=== PATIENT | male | born 1970 | race Two or more races ===

== ENCOUNTER → 2017-11-30 | Outpatient (CLI) | payer MEDICAID, OTHER ==
[~2017-11-30] MED LIST: ALBUMIN 25% 100 ML SOLN IV ONE; LIDOCAINE 1% 300 MG/30 ML SDV ONE
== END ==
LOC: FIMAGING 12:06
PROVIDERS: ATTEND Internal Medicine
PROC: 0W9G30Z Drainage of Peritoneal Cavity with Drainage Device, Percutaneous Approach (ICD-10-PCS; principal; 2017-11-30)
DX: R18.8 Other ascites (principal)
CPT/HCPCS: P9047

== ENCOUNTER 2017-12-01 11:28 | Emergency (ER) | payer SELFPAY ==
[2017-12-01 11:39] VITALS: RESP 18; TEMP 98.6; O2SAT 97
--- NOTE | 2017-12-01 12:52 | EDPHY ---
H & P Stated Complaint: Sent from Dr Vargas "infection in abd fluid" pt feels well Time Seen by Provider: 12/01/17 12:51 - Medical/Surgical History Hx Asthma: No Hx Chronic Respiratory Disease: No Hx Diabetes: No Hx Cardiac Disease: No Hx Renal Disease: No Hx Cirrhosis: No Hx Alcoholism: No Hx HIV/AIDS: No Hx Splenectomy or Spleen Trauma: No Other PMH: cirrosis - Social History Smoking Status: Never smoked Constitutional: Initial Vital Signs Temperature (C) 37.0 C 12/01/17 11:35 Heart Rate 105 H 12/01/17 11:35 Respiratory Rate 18 12/01/17 11:35 Blood Pressure 95/62 L 12/01/17 11:35 O2 Sat (%) 97 12/01/17 11:35 O2 Delivery Mode Room Air Allergies/Adverse Reactions: No Known Allergies Allergy (Unverified 12/01/17 11:34) Home Medications: Medication Instructions Recorded Furosemide 12/01/17 Medical Decision Making ED Course/Re-evaluation: CHIEF COMPLAINT: "I think I have a fluid infection" HISTORY OF PRESENT ILLNESS: The patient is a 47 y/o male with end-stage alcoholic cirrhosis and multiple prior paracenteses who arrives at the recommendation of his GI, Dr. Suarez, for infected peritoneal fluid. His most recent paracentesis was performed as an outpatient yesterday. He has no complaints here and denies abdominal pain, nausea, fever, chills, or any infectious symptoms. REVIEW OF SYSTEMS: A 10 point review of systems was performed and is negative with the exception of the elements mentioned in the history of present illness. PHYSICAL EXAM: HR, BP, O2 Sat, RR. Temp noted General Appearance: Alert, well hydrated, appropriate, and non-toxic appearing. Head: Atraumatic without scalp tenderness or obvious injury Eyes: Pupils equal, round, reactive to light and accommodation, EOMI, no trauma , no injection. Nose: Atraumatic, no rhinorrhea, clear. Throat: Mucus membranes moist. Neck: Supple Respiratory: No retractions, no distress, no wheezes, and no accessory muscle use. Lungs are clear to auscultation bilaterally. Cardiovascular: Regular rate and rhythm, no murmurs, rubs, or gallops. Good capillary refill all extremities. Gastrointestinal: Abdomen is soft, nontender, some distension with positive fluid wave, no masses, no rebound, no guarding, no peritoneal signs. Musculoskeletal: Normal active ROM of all extremities, atraumatic. Neurological: Alert, appropriate, and interactive. The patient has non-focal cranial nerves, motor, sensory, and cerebellar exam. Skin: No rashes, good turgor, no nodules on palpation. Past medical history: History of prior alcohol abuse; end-stage alcoholic cirrhosis with ascites Past surgical history: Multiple paracenteses - most recently 11/30/17. Family history: Noncontributory Social history: Family at bedside. Former alcoholic. GI: Dr. Vargas Prior medical records reviewed including ED visit 11/16/17 for abdominal distension and lab report from yesterday. DIFFERENTIAL DIAGNOSIS: The differential diagnosis for the patient's presentation included but was not limited to spontaneous bacterial peritonitis, cirrhosis with ascites, appendicitis, cholecystitis, hernias, testicular torsion , gastritis, and urinary tract infection. MEDICAL DECISION MAKING: This is a 47 y/o male with end-stage alcoholic cirrhosis who comes to the ED 1 day after his most recent paracentesis due to possible infected peritoneal fluid. He is completely asymptomatic and relatively well-appearing given his cirrhosis. He denies any recent infectious symptoms. Abdomen is nontender with positive fluid wave. Plan to review records and consult ID regarding lab results from yesterday. 1310: Consulted with VIJAYA Wright. He confirms the elevated WBC can indicate spontaneous bacterial peritonitis. He recommends treatment with Levaquin and outpatient follow up with Dr. Suarez on Monday. Peritoneal fluid cultures ordered. Discussed recommendation with the patient. He agrees with discharge plan. Strict return precautions discussed. Departure - Departure Disposition: Home, Routine, Self-Care Clinical Impression: Spontaneous bacterial peritonitis Alcoholic cirrhosis Qualifiers: Ascites presence: with ascites Qualified Code(s): K70.31 - Alcoholic cirrhosis of liver with ascites Condition: Good Instructions: Cirrhosis (ED), Ascites (ED) Additional Instructions: 1. Take Levaquin as prescribed. Be sure to complete the entire prescription. 2. Follow up with Dr. Suarez next week. 3. Return to the ED for abdominal pain, fever, chills, nausea, weakness, vomiting, or any other worsening of condition. Referrals: Tristan Suarez [Primary Care Provider] - As per Instructions Report Scribed for: Edwin Choi Report Scribed by: Laura Doyle Date of Report: 12/01/17 Time of Report: 12:59
[2017-12-01 13:38] VITALS: BP 101/64; PULSE 98
== END 2017-12-01 13:38 | disposition home or self-care (01) ==
DX: K70.31 Alcoholic cirrhosis of liver with ascites (principal); K65.2 Spontaneous bacterial peritonitis

== ENCOUNTER → 2017-12-14 | Outpatient (CLI) | payer MEDICAID | LOC: FIMAGING 11:47 | PROVIDERS: ATTEND Internal Medicine | PROC: 0W9F30Z Drainage of Abdominal Wall with Drainage Device, Percutaneous Approach (ICD-10-PCS; principal; 2017-12-14) | DX: R18.8 Other ascites (principal) | CPT/HCPCS: P9047 ==

== ENCOUNTER → 2017-12-28 | Outpatient (CLI) | payer MEDICAID | LOC: FIMAGING 11:41 | PROVIDERS: ATTEND Internal Medicine | PROC: 0W9F30Z Drainage of Abdominal Wall with Drainage Device, Percutaneous Approach (ICD-10-PCS; principal; 2017-12-28) | DX: R18.8 Other ascites (principal); K74.60 Unspecified cirrhosis of liver | CPT/HCPCS: P9047 ==

== ENCOUNTER → 2018-02-14 | Outpatient (CLI) | payer MEDICAID, OTHER | LOC: FIMAGING 08:06 | PROVIDERS: ATTEND Internal Medicine | DX: K70.31 Alcoholic cirrhosis of liver with ascites (principal); R16.1 Splenomegaly, not elsewhere classified ==

== ENCOUNTER 2018-04-13 16:33 | Emergency (ER) | payer OTHER ==
--- NOTE | 2018-04-13 17:04 | EDPHY ---
H & P Stated Complaint: pt states increasing pain r/t cirrhosis/and hernias Time Seen by Provider: 04/13/18 17:03 HPI/ROS: HPI: This is a 47-year-old male who presents with Chief Complaint: pt states increasing pain r/t cirrhosis/and hernias Location: Right inguinal and umbilical Quality: Pain Duration: 1 year Signs and Symptoms: no fever, + nausea, no vomiting, no hematemesis, no blood in stool, no abdominal bloating, no diarrhea, no back pain, no urinary symptoms , +testicular/groin pain, no indigestion, no chest pain, no shortness of breath Timing: Acute on chronic Chronic Severity: Moderate Context: Patient reports that he has a history of liver cirrhosis On Lasix and spironolactone and history last December 2016 of spontaneous bacterial peritonitis currently taking Levaquin status post paracentesis December 28, 2017. Last ultrasound per chart review was 02/14/2018. Patient reports that he has been compliant with the medication and has reported marked improvement in his abdominal swelling. Patient is followed by Dr. Suarez regarding his umbilical and right inguinal hernia. They have been present for over 1 year. Patient reports that he has increased pain with standing in his right inguinal area. Tylenol is not helping the pain. He denies any urinary or bowel difficulty, dysuria. He does report nausea with the pain. He reports that both hernias are reducible with rubbing olive oil over the area. Last meal was around 11:00 a.m. Secondary to "not wanting to eat too much."Has not drink alcohol in 2 years. Modifying Factors: Regular home medication Comment: ROS: see HPI Constitutional: No fever, no chills, no weight loss Eyes: No blurred vision Respiratory: No shortness of breath, no cough Cardiovascular: No chest pain, no palpitations Gastrointestinal: + nausea, no vomiting, no diarrhea, no hematemesis, no blood in stool Genitourinary: No dysuria, no blood in urine Extremities: No myalgias, no edema Neurologic: No weakness, no numbness Skin: No rashes, no petechiae Hematologic: No bruising, no bleeding MEDICAL/SURGICAL/SOCIAL HISTORY: Medical history: Liver Cirrhosis, abd hernia. right inguinal hernia Surgical history: Paracentesis Social history: with children. Family history noncontributory. CONSTITUTIONAL: Extremely polite and cooperative nontoxic-appearing middle-aged male awake and alert, no obvious distress HEENT: Atraumatic and normocephalic, PERRL, EOMI. Nares patent; no rhinorrhea; no nasal mucosal edema. Tympanic membranes clear. Oropharynx clear, no exudate and moist pink mucosa. Airway patent. No lymphadenopathy. No meningismus. Cardiovascular: Normal S1/S2, regular rate, regular rhythm, without murmur rub or gallop. PULMONARY/CHEST: Symmetrical and nontender. Clear to auscultation bilaterally. Good air movement. No accessory muscle usage. ABDOMEN: Soft, mild distended, nontender, no rebound, no guarding, no peritoneal signs, no masses or organomegaly. No CVAT. Reducible umbilical hernia noted. Male : circumcised penis, bilateral descended testes, reducible right inguinal hernia noted with moderate testicular swelling, no penile discharge, no lesions, negative Prehn's sign. EXTREMITIES: 2/2 pulses, strength 5/5, no deformities, no clubbing, no cyanosis or edema. NEUROLOGICAL: no focal neuro deficits. GCS 15. SKIN: Warm and dry, no erythema. no rash. Good capillary refill. Source: Patient, Old records Exam Limitations: No limitations - Personal History Current Tetanus Diphtheria and Acellular Pertussis (TDAP): Unsure - Medical/Surgical History Hx Asthma: No Hx Chronic Respiratory Disease: No Hx Diabetes: No Hx Cardiac Disease: No Hx Renal Disease: No Hx Cirrhosis: Yes Hx Alcoholism: No Hx HIV/AIDS: No Hx Splenectomy or Spleen Trauma: No Other PMH: Liver Cirrhosis, abd hernia.r inguinal hernia - Social History Smoking Status: Never smoked Constitutional: Initial Vital Signs Temperature (C) 37 C 04/13/18 16:46 Heart Rate 86 04/13/18 16:46 Respiratory Rate 19 04/13/18 16:46 Blood Pressure 106/58 L 04/13/18 16:46 O2 Sat (%) 99 04/13/18 16:46 O2 Delivery Mode Room Air Allergies/Adverse Reactions: No Known Allergies Allergy (Verified 04/13/18 16:44) Home Medications: Medication Instructions Recorded Furosemide [Lasix 20 MG (*)] 20 mg PO DAILY #30 tab 05/12/16 Levofloxacin 04/13/18 Ondansetron Odt [Zofran Odt 4 mg 4 mg PO Q4 PRN #12 tab 04/13/18 (*)] Spironolactone 04/13/18 Medical Decision Making - Diagnostics Imaging Results: Imaging Impressions Abdomen CT 04/13/18 17:15 Impression: 1. Large volume of ascites tracking into the scrotum via a patent process vaginalis. No inguinal hernia. 2. Cirrhosis, splenomegaly, and stigmata of portal venous hypertension and low albumin state. No evidence of a hepatoma or portal vein thrombosis. Findings discussed with Emergency Department physician, Nancy Stephens PA-C, on April 13, 2018 at 1806. ED Course/Re-evaluation: Labs, urinalysis, CT abdomen and pelvis scan with contrast ordered. Patient given IV morphine 6 mg. Vital signs reviewed upon arrival and stable. 1756: Labs reviewed. T bili 2.6 and unconjugated bili 1.7, baseline when compared to other absd. Sodium 131, value was 132 back in December in January. H/H 9.5/26.5 baseline. Called by Radiology who advised that CT abdomen and pelvis scan shows moderate ascites with scrotal edema and no incarceration of either hernias. Patient vital signs are stable and no signs of hypoxia, respiratory distress. Appropriate to treat outpatient with gastroenterology/General surgery follow-up. 1814: ED decision to consult radiology for US guided paracentesis. Spoke with Dr. Araujo kindly agrees to perform procedure outpatient sent back to the emergency room. Patient will likely need IV albumin prior to discharge. Urinalysis shows no signs of infection, no hematuria. 2021: Returned from radiology. Reassessed patient reports relief of pain. Gastroenterology and General surgery follow-up. Given prepack of Percocet to take home. This patient was seen under the supervision of my secondary supervising physician. I evaluated care for this patient independently. Discussed this patient with Dr. Choi who did not see the patient. Differential Diagnosis: Abdominal pain including but not limited to appendicitis, cholecystitis, gastritis and urinary tract infection. - Data Points Laboratory Results: Laboratory Results 04/13/18 17:10 04/13/18 17:10 04/13/18 04/13/18 04/13/18 18:15 17:10 17:10 WBC 4.70 10^3/uL 10^3/uL (3.80-9.50) RBC 2.77 10^6/uL L 10^6/uL (4.40-6.38) Hgb 9.5 g/dL L g/dL (13.7-17.5) Hct 26.5 % L % (40.0-51.0) MCV 95.7 fL fL (81.5-99.8) MCH 34.3 pg H pg (27.9-34.1) MCHC 35.8 g/dL g/dL (32.4-36.7) RDW 13.3 % % (11.5-15.2) Plt Count 36 10^3/uL L 10^3/uL (150-400) MPV 10.9 fL fL (8.7-11.7) Neut % (Auto) 71.1 % % (39.3-74.2) Lymph % (Auto) 9.6 % L % (15.0-45.0) [place] % (Auto) 9.8 % % (4.5-13.0) Eos % (Auto) 8.9 % H % (0.6-7.6) Baso % (Auto) 0.4 % % (0.3-1.7) Nucleat RBC Rel Count 0.0 % % (0.0-0.2) Absolute Neuts (auto) 3.34 10^3/uL 10^3/uL (1.70-6.50) Absolute Lymphs (auto) 0.45 10^3/uL L 10^3/uL (1.00-3.00) Absolute Monos (auto) 0.46 10^3/uL 10^3/uL (0.30-0.80) Absolute Eos (auto) 0.42 10^3/uL H 10^3/uL (0.03-0.40) Absolute Basos (auto) 0.02 10^3/uL 10^3/uL (0.02-0.10) Absolute Nucleated RBC 0.00 10^3/uL 10^3/uL (0-0.01) Immature Gran % 0.2 % % (0.0-1.1) Immature Gran # 0.01 10^3/uL 10^3/uL (0.00-0.10) Platelet Estimate DECREASED L (ADEQ) Sodium 131 mEq/L L mEq/L (135-145) Potassium 3.8 mEq/L mEq/L (3.3-5.0) Chloride 103 mEq/L mEq/L (97-110) Carbon Dioxide 20 mEq/l L mEq/l (22-31) Anion Gap 8 mEq/L mEq/L (8-16) BUN 14 mg/dL mg/dL (7-23) Creatinine 1.1 mg/dL mg/dL (0.7-1.3) Estimated GFR > 60 Glucose 104 mg/dL H mg/dL (70-100) Calcium 8.4 mg/dL L mg/dL (8.5-10.4) Total Bilirubin 2.6 mg/dL H mg/dL (0.1-1.4) Conjugated Bilirubin 0.9 mg/dL H mg/dL (0.0-0.5) Unconjugated Bilirubin 1.7 mg/dL H mg/dL (0.0-1.1) AST 50 IU/L IU/L (17-59) ALT 39 IU/L IU/L (21-72) Alkaline Phosphatase 105 IU/L IU/L (38-126) Total Protein 6.0 g/dL L g/dL (6.3-8.2) Albumin 2.6 g/dL L g/dL (3.5-5.0) Lipase 152 IU/L IU/L (23-300) Urine Color YELLOW Urine Appearance CLEAR Urine pH 5.0 (5.0-7.5) Ur Specific [place] 1.027 (1.002-1.030) Urine Protein NEGATIVE (NEGATIVE) Urine Ketones NEGATIVE (NEGATIVE) Urine Blood NEGATIVE (NEGATIVE) Urine Nitrate NEGATIVE (NEGATIVE) Urine Bilirubin NEGATIVE (NEGATIVE) Urine Urobilinogen 4.0 EU H EU (0.2-1.0) Ur Leukocyte Esterase NEGATIVE (NEGATIVE) Urine Glucose NEGATIVE (NEGATIVE) Medications Given: Discontinued Medications Morphine Sulfate (Morphine) 6 mg IVP EDNOW ONE Stop: 04/13/18 17:16 Last Admin: 04/13/18 17:26 Dose: 6 mg Ondansetron HCl (Zofran) 4 mg IVP EDNOW ONE Stop: 04/13/18 17:25 Last Admin: 04/13/18 17:26 Dose: 4 mg Departure - Departure Disposition: Home, Routine, Self-Care Clinical Impression: Scrotal edema Cirrhosis of liver with ascites Qualifiers: Hepatic cirrhosis type: alcoholic cirrhosis Qualified Code(s): K70.31 - Alcoholic cirrhosis of liver with ascites Condition: Good Instructions: Cirrhosis (ED), Inguinal Hernia (ED), Ascites (ED) Additional Instructions: Eat small meals throughout the day. Take Zofran 1 tab every 4 hours as needed for nausea, vomiting. Take Percocet 1 tab every 4-6 hours as needed for severe/breakthrough pain. Continue to take Lasix and spironolactone as directed. Follow-up with Hepatology and General surgery within the next several weeks. Return to the Emergency Room if symptoms do not resolve in the next 48-72 hours , you spike a fever > 102 F, or experience intractable abdominal pain/nausea/ vomiting. Referrals: Tristan Suarez [Primary Care Provider] - As per Instructions Anthony Velasquez MD [Medical Doctor] - As per Instructions Prescriptions: Ondansetron Odt [Zofran Odt 4 mg (*)] 4 mg PO Q4 PRN #12 tab PRN Reason: Nausea/Vomiting, Use 1st
[2018-04-13] MEDS ORDERED: ONDANSETRON 4 MG/2 ML VIAL ONE (17:21)
[2018-04-13] MEDS ORDERED: IOPAMIDOL (ISOVUE-300) 100 ML BTL ONE (17:21)
[2018-04-13] MEDS ORDERED: ONDANSETRON 4 MG/2 ML VIAL IVP ONE (17:24)
[2018-04-13 18:05] LABS: PLATELET COUNT 36 10^3/uL (150-400)
[2018-04-13] MEDS ORDERED: LIDOCAINE 1% 300 MG/30 ML SDV ONE (18:38)
[2018-04-13] MEDS ORDERED: OXYCODONE/APAP 5/325MG PREPACK#4 BTL TAKEHOME ONE (20:36)
[2018-04-13 21:04] VITALS: BP 104/57
== END 2018-04-13 21:04 | disposition home or self-care (01) ==
DX: K70.31 Alcoholic cirrhosis of liver with ascites (principal); N50.89 Other specified disorders of the male genital organs
CPT/HCPCS: 96374; J2270; J2405; Q9967

== ENCOUNTER 2018-04-27 07:24 | Observation (INO) | payer OTHER ==
[2018-04-27] MEDS ORDERED: ceFAZolin 2 GM/DEXTROSE 100 ML IV ONE (07:48)
[2018-04-27] MEDS ORDERED: LR 1,000 ML IV ONE (07:49)
[2018-04-27] MEDS ORDERED: LIDOCAINE 1% 2 ML INJ ID PRN (07:49)
--- NOTE | 2018-04-27 09:27 | PDHPUP ---
History & Physical Update H&P update statement: This history and physical update is based on an assessment of the patient which was completed after admission or registration (within 24 hours), but prior to the surgery/procedure. H&P update: H&P reviewed & patient examined, no change in patient's condition since H&P completed
[2018-04-27] MEDS ORDERED: LIDOCAINE 1% 300 MG/30 ML SDV ONE (09:38)
[2018-04-27] MEDS ORDERED: BUPIVACAINE 0.25% 30 ML SDV ONE ×2 (09:38→11:23)
[2018-04-27] MEDS ORDERED: NA BICARBONATE 50 MEQ/50 ML VIAL ONE (09:38)
[2018-04-27] MEDS ORDERED: fentaNYL 100 MCG/2 ML INJ ONE ×2 (09:52→10:21)
[2018-04-27] MEDS ORDERED: PROPOFOL/EMULSION 500 MG/50 ML BOTTLE IV ONE (09:52)
[2018-04-27] MEDS ORDERED: MIDAZOLAM 2 MG/2 ML VIAL ONE (09:52)
[2018-04-27] MEDS ORDERED: ONDANSETRON 4 MG/2 ML VIAL IVP PRN (10:14)
[2018-04-27] MEDS ORDERED: NALOXONE HCL 0.4 MG/ML INJ IVP PRN (10:14)
[2018-04-27] MEDS ORDERED: ALBUTEROL 3 ML DEYVIAL IH PRN (10:14)
[2018-04-27] MEDS ORDERED: MEPERIDINE 25 MG/0.5 ML AMP IVP PRN (10:14)
[2018-04-27] MEDS ORDERED: DEXAMETHASONE 4 MG/ML VIAL IVP PRN (10:14)
[2018-04-27] MEDS ORDERED: METOCLOPRAMIDE 10 MG/2 ML VIAL IVP PRN (10:14)
[2018-04-27] MEDS ORDERED: LR 500 ML IV PRN (10:14)
[2018-04-27] MEDS ORDERED: fentaNYL 100 MCG/2 ML INJ IVP PRN (10:14)
--- NOTE | 2018-04-27 10:14 | PDANEPAE ---
ANE Past Medical History - Cardiovascular History Hx Hypertension: No Hx Arrhythmias: No Hx Chest Pain: No Hx Coronary Artery / Peripheral Vascular Disease: No Hx CHF / Valvular Disease: No Hx Palpitations: No - Pulmonary History Hx COPD: No Hx Asthma/Reactive Airway Disease: No Hx Recent Upper Respiratory Infection: No Hx Oxygen in Use at Home: No Hx Sleep Apnea: No Sleep Apnea Screening Result - Last Documented: Negative - Neurologic History Hx Cerebrovascular Accident: No Hx Seizures: No Hx Dementia: No - Endocrine History Hx Diabetes: No - Renal History Hx Renal Disorders: No - Liver History Hx Hepatic Disorders: Yes Hepatic History Comment: alcoholic mild liver disease - Neurological & Psychiatric Hx Hx Neurological and Psychiatric Disorders: No - Cancer History Hx Cancer: No - Congenital Disorder History Hx Congenital Disorders: No - GI History Hx Gastrointestinal Disorders: Yes Gastrointestinal History Comment: ulcer - Surgical History Prior Surgeries: ulcer, ANE Review of Systems Review of Systems: - Exercise capacity METS (RN): 4 METS ANE Patient History - Allergies Allergies/Adverse Reactions: No Known Allergies Allergy (Verified 04/13/18 16:44) - Home Medications Home Medications: Spironolactone 04/13/18 [Last Taken 04/26/18] Bactrim DS 04/27/18 [Last Taken 04/26/18] - NPO status NPO Since - Liquids (Date): 04/26/18 NPO Since - Liquids (Time): 23:55 NPO Since - Solids (Date): 04/26/18 NPO Since - Solids (Time): 18:00 - Smoking Hx Smoking Status: Never smoked ANE Labs/Vital Signs - Vital Signs Blood Pressure: 122/69 Heart Rate: 97 Respiratory Rate: 16 O2 Sat (%): 100 Height: 172.72 cm Weight: 69.4 kg ANE Physical Exam - Airway Neck exam: FROM Mallampati Score: Class 1 Mouth exam: poor dentition - Pulmonary Pulmonary: no respiratory distress, no rales or rhonchi, reduced air movement - Cardiovascular Cardiovascular: regular rate and rhythym, no murmur, rub, or gallop, tachycardia - ASA Status ASA Status: V ANE Anesthesia Plan Anesthesia Plan: GA w LMA (proseal lma)
[2018-04-27] MEDS ORDERED: PHENYLEPHRINE HCL 100 MCG/ML SYR ONE ×2 (10:18→10:33)
[2018-04-27] MEDS ORDERED: LIDOCAINE 2% 5 ML SDV ONE (10:18)
[2018-04-27] MEDS ORDERED: METOCLOPRAMIDE 10 MG/2 ML VIAL ONE (10:18)
[2018-04-27] MEDS ORDERED: ONDANSETRON 4 MG/2 ML VIAL ONE (10:18)
[2018-04-27] MEDS ORDERED: ALBUMIN 5% 250 ML BOTTLE IV ONE (10:31)
[2018-04-27] MEDS ORDERED: THROMBIN (BOVINE) 5,000 UNIT VIAL TP ONE ×2 (11:08→11:26)
--- NOTE | 2018-04-27 12:01 | POSTOPPROG ---
Post Op Note Date of Operation: 04/27/18 Surgeon: Sarbjit Burrows Hyster Machine Operator: Sundeep Anesthesiologist: Edwin Anesthesia: GET(General Endotracheal) Pre-op Diagnosis: Right inguinal hernia, umbilical hernia, cirrhosis Post-op Diagnosis: same Indication: pain Procedure: open umbilical and R inguinal hernia repairs, paracentesis Findings: indirect RIH, 5200cc abdominal fluid out Inf/Abcess present in the surg proc area at time of surgery?: No Depth: Deep Incisional (Fascial) EBL: Minimal Drains: Reji Mak Specimen(s): Umbilical and right inguinal hernia sacs- permanent
[2018-04-27] MEDS ORDERED: oxyCODONE IR 5 MG TAB ONE ×2 (12:30→13:30)
[2018-04-27] MEDS: oxyCODONE IR 5 MG TAB PO PRN ×4 (12:32→23:03)
--- NOTE | 2018-04-27 13:05 | POSTANESTH ---
Post Anesthetic Evaluation Cardiovascular Status: Normal, Stable, Similar to Pre-Op Cond Respiratory Status: Normal, Stable, Similar to Pre-op Cond. Level of Consciousness/Mental Status: Moderately Sleepy Pain Control: Adequate, Prn Tx Ordered Nausea/Vomiting Control: Adequate, Prn Tx Ordered Complications Possibly Related to Anesthesia: None Noted
[2018-04-27] MEDS ORDERED: IBUPROFEN 200 MG TAB PO ONE (14:40)
[2018-04-27] MEDS ORDERED: IBUPROFEN 600 MG TAB PO ONE (15:00)
[2018-04-27] MEDS ORDERED: HYDROmorphONE/DILAUDID 1 MG/ML INJ IVP PRN (16:36)
[2018-04-27] MEDS ORDERED: ONDANSETRON DISINTEGRATING 4 MG TAB PO PRN (16:38)
--- NOTE | 2018-04-27 20:17 | SOAPPROG ---
JONY Progress Note Assessment/Plan: Assessment: POSTOP LARGE VOLUME PARACENTESIS, OPEN RIGHT INGUINAL HERNIA REPAIR AND OPEN UMBILICAL HERNIA REPAIR DOING WELL/AFEBRILE/NONICTERIC/WOUND OKAY Plan: HOME IN THE A.M. 04/27/18 20:16 Objective: Vital Signs Temp Pulse Resp BP Pulse Ox 36.5 C 80 16 104/57 L 100 04/27/18 19:46 04/27/18 19:46 04/27/18 19:46 04/27/18 19:46 04/27/18 19:46 04/26/18 04/27/18 04/28/18 05:59 05:59 05:59 Intake Total 750 Output Total 130 Balance 620 ICD10 Worksheet Patient Problems: Problems Problem Status Onset GI bleed Acute Vomiting of blood Acute
[2018-04-27] MEDS: IBUPROFEN 200 MG TAB PO PRN (23:03)
[2018-04-28] MEDS: oxyCODONE IR 5 MG TAB PO PRN ×2 (04:51→10:05)
[2018-04-28] MEDS: IBUPROFEN 200 MG TAB PO PRN (04:51)
--- NOTE | 2018-04-28 06:30 | GOP ---
[f rep st] OPERATIVE REPORT DATE OF OPERATION: 04/27/2018 SURGEON: Sarbjit Burrows MD PREOPERATIVE DIAGNOSIS: 1. Symptomatic umbilical hernia and large symptomatic right inguinal hernia. 2. Cirrhosis and ascites. POSTOPERATIVE DIAGNOSIS: 1. Symptomatic umbilical hernia and large symptomatic right inguinal hernia. 2. Cirrhosis and ascites. PROCEDURE PERFORMED: 1. Open umbilical hernia repair without mesh, large volume paracentesis. 2. Open right inguinal hernia with mesh. 3. LARGE VOLUME PARASCENTESIS FINDINGS: LARGE DIRECT RIH, SMALL 2CM UMBILICAL HERNIA, 6200 CC PARASCENTESIS DESCRIPTION OF PROCEDURE: Patient was taken to the operating room where he received satisfactory general endotracheal anesthesia by Dr. Pineda. He was placed in the supine position, prepped and draped in usual sterile fashion. A circumareolar incision was made around the umbilicus. Dissection was carried down through subcutaneous tissue. The hernia sac was dissected free from the skin of the umbilicus and the subcutaneous tissue. The sac was freed up from the fascial edges. The sac was opened. Suction was placed in the abdomen and 6 L of serous fluid was removed without difficulty. The sump sucker was removed , and the sac was doubly ligated with 2-0 Vicryl suture ligatures and allowed to retract down underneath the fascia. The wound was then closed in layers using 3-0 Vicryl for the subcutaneous tissue and 4-0 Monocryl subcuticular stitch for the skin. Attention was turned to the right inguinal area. An oblique incision was made in the right inguinal area. Dissection extended down through the subcutaneous tissue, down to the external oblique fascia, which was then opened at the external ring. The cord was mobilized from the floor of the canal. A very large indirect sac containing serous fluid was dissected free. It was doubly suture ligated at the internal ring after it from the cord structures. Excess sac was amputated. The area was infiltrated with 0.5% Marcaine. A Covidien polyester mesh split patch was placed over the inguinal floor and anchored in place with interrupted 0 Surgilon sutures. Mesh was secured in place with 0 Surgilon sutures, securing it to the anterior fascia and to the shelving edge of Rehan's ligament. All knots were tied without tension. The mesh completely covered the inguinal floor. Cord and nerve were replaced in anatomic position. External oblique was closed with a running 2-0 Vicryl suture, subcu with 3-0 Vicryl, all layers infiltrated with 0.5% Marcaine , and skin with skin ermelinda. The wound was further infiltrated with 0.5% Marcaine. He tolerated the procedure well, was taken to the recovery room in good condition. There were no complications. Blood loss was negligible. /[id number]/MODL MTDD
[2018-04-28 07:12] VITALS: BP 106/52
[2018-04-28] MEDS ORDERED: FUROSEMIDE 40 MG TAB PO SCH (09:00)
[2018-04-28] MEDS ORDERED: SPIRONOLACTONE 100 MG TAB PO SCH (09:00)
--- NOTE | 2018-04-28 09:51 | SOAPPROG ---
SOAP Progress Note Assessment/Plan: Assessment: S/P Paracentesis, RIH and umbilical hernia Doing well No heavy lifting pushing pulling S: Feeling well, only hurts when walking Dressings cdi AMADO with serosang fluid CTAB RRR Plan: 04/28/18 09:50 Objective: Vital Signs Temp Pulse Resp BP Pulse Ox 36.7 C 77 14 106/52 L 94 04/28/18 07:12 04/28/18 07:12 04/28/18 07:12 04/28/18 07:12 04/28/18 07:12 04/27/18 04/28/18 04/29/18 05:59 05:59 05:59 Intake Total 2250 Output Total 190 Balance 2060 ICD10 Worksheet Patient Problems: Problems Problem Status Onset GI bleed Acute Vomiting of blood Acute
[2018-04-30] MEDS ORDERED: SULFAMETHOX/TMP 800/160 MG 1 TAB PO SCH (09:00)
== END 2018-04-28 12:55 | disposition home or self-care (01) ==
LOC: FSGY 07:24 → F3N 16:28 → F3E 17:38
PROVIDERS: ADMIT Nurse Practitioner Family; ATTEND Surgery
DX: K40.90 Unilateral inguinal hernia, without obstruction or gangrene, not specified as recurrent (principal); K42.9 Umbilical hernia without obstruction or gangrene; K70.31 Alcoholic cirrhosis of liver with ascites; F10.21 Alcohol dependence, in remission
CPT/HCPCS: C1781; G0378; J0690; J2250; J2370; J2405; J2704; J2765; J3010; P9041

== ENCOUNTER → 2018-05-22 | Outpatient (CLI) | payer MEDICAID, OTHER | LOC: MERGE 07:55 → FIMAGING 07:55 | PROVIDERS: ATTEND Internal Medicine | PROC: 0W9G3ZZ Drainage of Peritoneal Cavity, Percutaneous Approach (ICD-10-PCS; principal; 2018-05-22) | DX: R18.8 Other ascites (principal) | CPT/HCPCS: P9047 ==

== ENCOUNTER → 2018-10-30 | Outpatient (CLI) | payer MEDICAID, OTHER | LOC: FIMAGING 09:39 | PROVIDERS: ATTEND Internal Medicine | PROC: 0W9G3ZX Drainage of Peritoneal Cavity, Percutaneous Approach, Diagnostic (ICD-10-PCS; principal; 2018-10-30) | DX: K70.31 Alcoholic cirrhosis of liver with ascites (principal) | CPT/HCPCS: P9047 ==

== ENCOUNTER → 2019-01-24 | Outpatient (CLI) | payer OTHER, MEDICAID | LOC: FIMAGING 09:40 ==

== ENCOUNTER → 2019-03-28 | Outpatient (CLI) | payer MEDICAID, OTHER | LOC: FIMAGING 09:24 ==